=== PATIENT | male | born 1990 | race Caucasian/White ===

== ENCOUNTER 2016-08-08 01:09 | Emergency (ER) | payer OTHER ==
[2016-08-08 01:20] VITALS: BP 115/71; PULSE 108; TEMP 98.3; BMI 21.6
[2016-08-08] MEDS ORDERED: KETOROLAC TROMETHAMINE 60 MG/2 ML VIAL ONE (01:29)
[2016-08-08] MEDS ORDERED: KETOROLAC TROMETHAMINE 60 MG/2 ML VIAL IM ONE (01:29)
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
== END 2016-08-08 02:08 | disposition home or self-care (01) ==
LOC: FER 01:09
PROC: 3E0233Z Introduction of Anti-inflammatory into Muscle, Percutaneous Approach (ICD-10-PCS; principal; 2016-08-08)
DX: Y04.2XXA Assault by strike against or bumped into by another person, initial encounter (principal); Y93.89 Activity, other specified; Y92.9 Unspecified place or not applicable; F17.210 Nicotine dependence, cigarettes, uncomplicated
CPT/HCPCS: 71020-TC; 96372; 99281-25

== ENCOUNTER 2016-12-14 13:43 | Inpatient (IN) | payer OTHER ==
--- NOTE | 2016-12-14 18:26 | HP ---
Admission ROS S - HPI Allergies/Adverse Reactions: Allergies Allergy/AdvReac Type Severity Reaction Status Date / Time No Known Allergies Allergy Verified 08/08/16 01:11 - Ebola screening Have you been sick,other than usual withdrawal symptoms: No Patient History - Smoking Cessation Smoking history: Current every day smoker Have you smoked in the past 12 months: Yes Aproximately how many cigarettes per day: 6 Hx Chewing Tobacco Use: No Admission Physical Exam S - Vital Signs Vital Signs: Vital Signs - 24 hr 12/14/16 16:31 Temperature 97.4 F L Pulse Rate 62 Respiratory 20 Rate Blood Pressure 111/60 BHS Breath Alcohol Content Breath Alcohol Content: 0 Urine Drug Screen - Results Drug Screen Negative: No Urine Drug Screen Results: THC-Marijuana, PCP-Phencyclidine, BZO-Benzodiazepines , MTD-Methadone, TCA-Tricyclic Antidepress
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
[2016-12-14] MEDS ORDERED: MENTHOL/PHENOL 1 EACH UD MM PRN (20:26)
[2016-12-14] MEDS ORDERED: guaiFENesin/D-METHORPHAN HB 10 ML UNIT-DOSE CUPS PO PRN (20:26)
[2016-12-14] MEDS ORDERED: ACETAMINOPHEN 325 MG TABLET (FP) PO PRN (20:26)
[2016-12-14] MEDS ORDERED: IBUPROFEN 400 MG TABLET (FP) PO PRN (20:26)
[2016-12-14] MEDS ORDERED: MAG HYDROX/AL HYDROX/SIMETH 30 ML UNIT-DOSE CUP PO PRN (20:26)
[2016-12-14] MEDS ORDERED: P-EPHED 60MG/TRIPROLIDI 2.5MG TABLET PO PRN (20:26)
[2016-12-14] MEDS ORDERED: hydrOXYzine PAMOATE 50 MG CAPSULE (FP) PO PRN (20:26)
[2016-12-14] MEDS ORDERED: LOPERAMIDE HCL 2 MG CAPSULE PO PRN (20:26)
[2016-12-14] MEDS ORDERED: diphenhydrAMINE HCL 50 MG CAPSULE PO PRN (20:26)
[2016-12-14] MEDS ORDERED: MAGNESIUM CITRATE 300 ML BOTTLE PO PRN (20:26)
[2016-12-14] MEDS ORDERED: MAGNESIUM HYDROX 2400MG/30ML ORAL SUSPENSION 30 ML CUP PO PRN (20:26)
[2016-12-14] MEDS ORDERED: diazePAM 5 MG TABLET PO ONE (20:26)
[2016-12-14] MEDS: THIAMINE HCL 100 MG TABLET (FP) PO SCH (23:26)
[2016-12-14] MEDS: NICOTINE 21 MG/24 HOURS TOPICAL PATCH TD SCH (23:30)
[2016-12-14] MEDS: diazePAM 5 MG TABLET PO SCH (23:31)
[2016-12-15 01:25] LABS: URINE APPEARANCE SLCLOUDY; URINE BILIRUBIN NEGATIVE (NEGATIVE); URINE BLOOD NEGATIVE (NEGATIVE); URINE COLOR YELLOW; URINE GLUCOSE (UA) NEGATIVE (NEGATIVE); URINE KETONE NEGATIVE (NEGATIVE); URINE NITRITE NEGATIVE (NEGATIVE); URINE PROTEIN NEGATIVE (NEGATIVE)
[2016-12-15] MEDS: diazePAM 5 MG TABLET PO SCH ×3 (06:12→22:20)
[2016-12-15] MEDS ORDERED: METHADONE HCL 40 MG DISPERSABLE TABLET PO SCH (07:15)
[2016-12-15] MEDS ORDERED: METHADONE HCL 10 MG TABLET ONE (08:26)
[2016-12-15] MEDS ORDERED: METHADONE HCL 40 MG DISPERSABLE TABLET ONE (08:27)
[2016-12-15 08:49] LABS: URINE LEUK ESTERASE Negative (NEGATIVE)
[2016-12-15 10:20] LABS: MCH 30.3 pg (25.7-33.7); MCHC 33.4 g/dl (32.0-35.9); MEAN CELL VOLUME 90.8 fl (80-96); PLATELET COUNT 302 K/MM3 (134-434); RDW 13.2 % (11.9-15.9); WHITE BLOOD COUNT 7.7 K/mm3 (4.0-10.0)
[2016-12-15] MEDS: METHADONE 40 MG, METHADONE 10 MG PO SCH (10:34)
[2016-12-15] MEDS: PRENATAL VITAMINS W/ FOLIC ACID TABLET (FP) PO SCH (10:34)
[2016-12-15] MEDS: NICOTINE POLACRILEX 2 MG GUM BC PRN ×2 (10:35→19:15)
[2016-12-15] MEDS: NICOTINE 21 MG/24 HOURS TOPICAL PATCH TD SCH (10:35)
--- NOTE | 2016-12-15 10:45 | EKG ---
Test Reason : Blood Pressure : / mmHG Vent. Rate : 061 BPM Atrial Rate : 061 BPM P-R Int : 132 ms QRS Dur : 092 ms QT Int : 414 ms P-R-T Axes : 053 082 065 degrees QTc Int : 416 ms NORMAL SINUS RHYTHM WITH SINUS ARRHYTHMIA NORMAL ECG NO PREVIOUS ECGS AVAILABLE Confirmed by BLAKE PRECIADO, GIA ([id number]) on 12/15/2016 10:45:04 AM Referred By: Confirmed By:GIA LOZANO MD
[2016-12-15 11:02] LABS: ALBUMIN 3.9 g/dl (3.4-5.0); ALK PHOS 61 U/L (45-117); ANION GAP 10 (8-16); BILIRUBIN,TOTAL 0.8 mg/dL (0.2-1.0); CALCIUM 8.9 mg/dL (8.5-10.1); CO2 25 mmol/L (21-32); CREATININE 0.9 mg/dL (0.7-1.3); GLUCOSE,RANDOM 107 mg/dL (74-106); SGOT/AST 17 U/L (15-37); SGPT/ALT 29 U/L (12-78); TOT PROT 7.4 g/dl (6.4-8.2)
--- NOTE | 2016-12-15 11:04 | PN ---
[facility] CIWA - CIWA Score Nausea/Vomitin-No Nausea/No Vomiting Muscle Tremors: 2 Anxiety: 4-Mod. Anxious/Guarded Agitation: 3 Paroxysmal Sweats: 1-Minimal Palms Moist Orientation: 0-Oriented Tacttile Disturbances: 3-Moderate Itch/Numb/Burn Auditory Disturbances: 0-None Visual Disturbances: 0-None Headache: 0-None Present CIWA-Ar Total Score: 13 BHS Progress Note (SOAP) Subjective: ANXIETY,SWEATS,SLIGHT TREMORS,"JITTERY". Objective: 12/15/16 11:04 Vital Signs Temperature 97.3 F L 12/15/16 09:19 Pulse Rate 59 L 12/15/16 09:19 Respiratory Rate 16 12/15/16 09:19 Blood Pressure 105/57 12/15/16 09:19 O2 Sat by Pulse Oximetry (%) Laboratory Last Values WBC 7.7 K/mm3 (4.0-10.0) D 12/15/16 07:00 RBC 4.48 M/mm3 (4.00-5.60) 12/15/16 07:00 Hgb 13.6 GM/dL (11.7-16.9) 12/15/16 07:00 Hct 40.7 % (35.4-49) 12/15/16 07:00 MCV 90.8 fl (80-96) 12/15/16 07:00 MCH 30.3 pg (25.7-33.7) 12/15/16 07:00 MCHC 33.4 g/dl (32.0-35.9) 12/15/16 07:00 RDW 13.2 % (11.9-15.9) 12/15/16 07:00 Plt Count 302 K/MM3 (134-434) D 12/15/16 07:00 MPV 8.0 fl (7.5-11.1) 12/15/16 07:00 Sodium 138 mmol/L (136-145) 12/15/16 07:00 Potassium 4.1 mmol/L (3.5-5.1) 12/15/16 07:00 Chloride 103 mmol/L (98-107) 12/15/16 07:00 Carbon Dioxide 25 mmol/L (21-32) 12/15/16 07:00 Anion Gap 10 (8-16) 12/15/16 07:00 BUN 15 mg/dL (7-18) 12/15/16 07:00 Creatinine 0.9 mg/dL (0.7-1.3) 12/15/16 07:00 Creat Clearance w eGFR > 60 (>60) 12/15/16 07:00 Random Glucose 107 mg/dL (74-106) H 12/15/16 07:00 Calcium 8.9 mg/dL (8.5-10.1) 12/15/16 07:00 Total Bilirubin 0.8 mg/dL (0.2-1.0) D 12/15/16 07:00 AST 17 U/L (15-37) D 12/15/16 07:00 ALT 29 U/L (12-78) D 12/15/16 07:00 Alkaline Phosphatase 61 U/L (45-117) D 12/15/16 07:00 Total Protein 7.4 g/dl (6.4-8.2) 12/15/16 07:00 Albumin 3.9 g/dl (3.4-5.0) 12/15/16 07:00 Urine Color Yellow 12/14/16 22:45 Urine Appearance Slcloudy 12/14/16 22:45 Urine pH 6.0 (5.0-8.0) 12/14/16 22:45 Ur Specific [place] 1.025 (1.005-1.025) 12/14/16 22:45 Urine Protein Negative (NEGATIVE) 12/14/16 22:45 Urine Glucose (UA) Negative (NEGATIVE) 12/14/16 22:45 Urine Ketones Negative (NEGATIVE) 12/14/16 22:45 Urine Blood Negative (NEGATIVE) 12/14/16 22:45 Urine Nitrite Negative (NEGATIVE) 12/14/16 22:45 Urine Bilirubin Negative (NEGATIVE) 12/14/16 22:45 Urine Urobilinogen 2.0 mg/dL (0.2-1.0) 12/14/16 22:45 Ur Leukocyte Esterase Negative (NEGATIVE) 12/14/16 22:45 Assessment: 12/15/16 11:04 WITHDRAWAL SX Plan: CONTINUE DETOX
--- NOTE | 2016-12-15 11:17 | CONSULT ---
[facility] Psychiatric Consult - Data Date of interview: 12/15/16 Admission source: [facility] Identifying data: This is 26 years old male with no psychiatric hospitalization history intoxicated with: Cannabis, PCP, Opioids, Xanax and Nicotine Substance Abuse History: Urine Drug Screen Results: THC-Marijuana, PCP- Phencyclidine, BZO-Benzodiazepines, MTD-Methadone, TCA-Tricyclic Antidepress. - Smoking Cessation. Smoking history: Current every day smoker. Have you smoked in the past 12 months: Yes. Aproximately how many cigarettes per day: 13. Cigars Per Day: 0. Hx Chewing Tobacco Use: No. Initiated information on smoking cessation: Yes. 'Breaking Loose' booklet given: 12/14/16. - Substance & Tx. History. Hx Alcohol Use: No. Hx Substance Use: Yes. Substance Use Type : Opiates (MMTP), Tranquilizers. Hx Substance Use Treatment: Yes ([facility]) . - Substances Abused. XANAX. Route: Oral. Frequency: Daily. Amount used : 6MG. Age of first use: 17. Date of Last Use: 12/13/16 Medical History: Denies Psychiatric History: Reports history of depression, reports no medications taking prior to admission Physical/Sexual Abuse/Trauma History: Denies Additional Comment: Urine Drug Screen Results: THC-Marijuana, PCP-Phencyclidine , BZO-Benzodiazepines, MTD-Methadone, TCA-Tricyclic Antidepress. Observation. Detox Unit Care Protocol Mental Status Exam - Mental Status Exam Alert and Oriented to: Person Cognitive Function: Fair Patient Appearance: Unkempt Mood: Sad Affect: Flat Patient Behavior: Sedated Speech Pattern: Delayed Voice Loudness: Mildly Soft/Quiet Thought Process: Circumstantial Thought Disorder: Being Controlled Hallucinations: Denies Suicidal Ideation: Denies Homicidal Ideation: Denies Insight/Judgement: Fair Sleep: Difficulty falling asleep Appetite: Fair Muscle strength/Tone: Mild Hypotonicity Gait/Station: Shuffling Additional Comments: Observation. Detox Unit Care Protocol Psychiatric Findings - Problem List (Burns 1, 2,3) (1) Cannabis dependence, uncomplicated Current Visit: Yes Status: Acute (2) Nicotine dependence Current Visit: Yes Status: Acute Qualifiers: Nicotine product type: cigarettes Substance use status: in withdrawal Qualified Code(s): F17.213 - Nicotine dependence, cigarettes, with withdrawal; F17.213 - Nicotine dependence, cigarettes, with withdrawal (3) Sedative, hypnotic or anxiolytic dependence with withdrawal, uncomplicated Current Visit: Yes Status: Acute (4) Methadone maintenance therapy patient Current Visit: Yes Status: Chronic (5) Opioid dependence on agonist therapy Current Visit: Yes Status: Chronic (6) PCP dependence Current Visit: Yes Status: Chronic (7) Drug-induced mood disorder Current Visit: Yes Status: Suspected - Initial Treatment Plan Initial Treatment Plan: Observation. Detox Unit Care Protocol
[2016-12-15] MEDS: diazePAM 5 MG TABLET PO PRN (17:08)
[2016-12-15] MEDS: THIAMINE HCL 100 MG TABLET (FP) PO SCH (22:20)
[2016-12-16] MEDS ORDERED: METHADONE HCL 10 MG TABLET ONE (03:55)
[2016-12-16] MEDS ORDERED: METHADONE HCL 40 MG DISPERSABLE TABLET ONE (03:55)
[2016-12-16] MEDS: METHADONE 40 MG, METHADONE 10 MG PO SCH (05:45)
[2016-12-16] MEDS: diazePAM 5 MG TABLET PO PRN (05:46)
[2016-12-16] MEDS: diazePAM 5 MG TABLET PO SCH ×2 (10:36→22:10)
[2016-12-16] MEDS: NICOTINE 21 MG/24 HOURS TOPICAL PATCH TD SCH (10:36)
[2016-12-16] MEDS: PRENATAL VITAMINS W/ FOLIC ACID TABLET (FP) PO SCH (10:36)
--- NOTE | 2016-12-16 12:19 | PN ---
S CIWA - CIWA Score Nausea/Vomitin Muscle Tremors: 4-Moderate,w/Arms Extend Anxiety: 4-Mod. Anxious/Guarded Agitation: 4-Moderately Restless Paroxysmal Sweats: 1-Minimal Palms Moist Orientation: 0-Oriented Tacttile Disturbances: 1-Very Mild Itch/Numbness Auditory Disturbances: 0-None Visual Disturbances: 0-None Headache: 1-Very Mild CIWA-Ar Total Score: 18 BHS Progress Note (SOAP) Subjective: nausea, sweats, interrupted sleep, anxiety, tremors Objective: 12/17/16 07:59 Vital Signs 12/17/16 12/17/16 12/17/16 00:30 03:30 06:19 Temperature 96.6 F L Pulse Rate 60 Respiratory 18 18 16 Rate Blood Pressure 110/54 Laboratory Tests 12/14/16 12/14/16 12/15/16 07:00 22:45 07:00 WBC 7.7 D RBC 4.48 Hgb 13.6 Hct 40.7 MCV 90.8 MCH 30.3 MCHC 33.4 RDW 13.2 Plt Count 302 D MPV 8.0 Sodium Potassium Chloride Carbon Dioxide Anion Gap BUN Creatinine Creat Clearance w eGFR Random Glucose Calcium Total Bilirubin AST ALT Alkaline Phosphatase Total Protein Albumin Urine Color Yellow Urine Appearance Slcloudy Urine pH 6.0 Ur Specific [place] 1.025 Urine Protein Negative Urine Glucose (UA) Negative Urine Ketones Negative Urine Blood Negative Urine Nitrite Negative Urine Bilirubin Negative Urine Urobilinogen 2.0 Ur Leukocyte Esterase Negative RPR Titer Hepatitis C Antibody 0.1 12/15/16 12/15/16 07:00 07:00 WBC RBC Hgb Hct MCV MCH MCHC RDW Plt Count MPV Sodium 138 Potassium 4.1 Chloride 103 Carbon Dioxide 25 Anion Gap 10 BUN 15 Creatinine 0.9 Creat Clearance w eGFR > 60 Random Glucose 107 H Calcium 8.9 Total Bilirubin 0.8 D AST 17 D ALT 29 D Alkaline Phosphatase 61 D Total Protein 7.4 Albumin 3.9 Urine Color Urine Appearance Urine pH Ur Specific [place] Urine Protein Urine Glucose (UA) Urine Ketones Urine Blood Urine Nitrite Urine Bilirubin Urine Urobilinogen Ur Leukocyte Esterase RPR Titer Nonreactive Hepatitis C Antibody Assessment: 12/17/16 08:00 withdrawal sx Plan: cont detox, fluids, Mvi, encourage ambulation
[2016-12-16] MEDS: THIAMINE HCL 100 MG TABLET (FP) PO SCH (22:10)
[2016-12-17] MEDS ORDERED: METHADONE HCL 10 MG TABLET ONE (03:12)
[2016-12-17] MEDS ORDERED: METHADONE HCL 40 MG DISPERSABLE TABLET ONE (03:13)
[2016-12-17] MEDS: METHADONE 40 MG, METHADONE 10 MG PO SCH (05:50)
[2016-12-17] MEDS: diazePAM 5 MG TABLET PO PRN ×2 (05:50→19:39)
[2016-12-17] MEDS: PRENATAL VITAMINS W/ FOLIC ACID TABLET (FP) PO SCH (10:36)
[2016-12-17] MEDS: diazePAM 5 MG TABLET PO SCH ×2 (10:36→22:26)
[2016-12-17] MEDS: NICOTINE 21 MG/24 HOURS TOPICAL PATCH TD SCH (10:36)
--- NOTE | 2016-12-17 13:21 | PN ---
BHS Progress Note (SOAP) Subjective: Sweating. Objective: PT. A & O X 3, OBSERVED AMBULATING ON UNIT. NO ACUTE DISTRESS. 12/17/16 13:20 Vital Signs Temperature 97.2 F L 12/17/16 09:43 Pulse Rate 79 12/17/16 09:43 Respiratory Rate 18 12/17/16 09:43 Blood Pressure 114/58 12/17/16 09:43 O2 Sat by Pulse Oximetry (%) Laboratory Tests 12/14/16 12/14/16 12/15/16 07:00 22:45 07:00 WBC 7.7 D RBC 4.48 Hgb 13.6 Hct 40.7 MCV 90.8 MCH 30.3 MCHC 33.4 RDW 13.2 Plt Count 302 D MPV 8.0 Sodium Potassium Chloride Carbon Dioxide Anion Gap BUN Creatinine Creat Clearance w eGFR Random Glucose Calcium Total Bilirubin AST ALT Alkaline Phosphatase Total Protein Albumin Urine Color Yellow Urine Appearance Slcloudy Urine pH 6.0 Ur Specific [place] 1.025 Urine Protein Negative Urine Glucose (UA) Negative Urine Ketones Negative Urine Blood Negative Urine Nitrite Negative Urine Bilirubin Negative Urine Urobilinogen 2.0 Ur Leukocyte Esterase Negative RPR Titer Hepatitis C Antibody 0.1 12/15/16 12/15/16 07:00 07:00 WBC RBC Hgb Hct MCV MCH MCHC RDW Plt Count MPV Sodium 138 Potassium 4.1 Chloride 103 Carbon Dioxide 25 Anion Gap 10 BUN 15 Creatinine 0.9 Creat Clearance w eGFR > 60 Random Glucose 107 H Calcium 8.9 Total Bilirubin 0.8 D AST 17 D ALT 29 D Alkaline Phosphatase 61 D Total Protein 7.4 Albumin 3.9 Urine Color Urine Appearance Urine pH Ur Specific [place] Urine Protein Urine Glucose (UA) Urine Ketones Urine Blood Urine Nitrite Urine Bilirubin Urine Urobilinogen Ur Leukocyte Esterase RPR Titer Nonreactive Hepatitis C Antibody LABS NOTED. Assessment: 12/17/16 13:20 WITHDRAWAL SYMPTOMS. Plan: CONTINUE DETOX.
[2016-12-17] MEDS: THIAMINE HCL 100 MG TABLET (FP) PO SCH (22:26)
[2016-12-18] MEDS ORDERED: METHADONE HCL 40 MG DISPERSABLE TABLET ONE (03:32)
[2016-12-18] MEDS ORDERED: METHADONE HCL 10 MG TABLET ONE (03:32)
[2016-12-18] MEDS: METHADONE 40 MG, METHADONE 10 MG PO SCH (06:04)
[2016-12-18 06:48] VITALS: BP 104/60; PULSE 66; TEMP 96.2
[2016-12-18] MEDS ORDERED: diazePAM 5 MG TABLET PO SCH (10:00)
--- NOTE | 2016-12-18 13:11 | DS ---
[facility] Detox Discharge Summary Admission Date: 12/14/16 Discharge Date: 12/18/16 - History Present History: Sedative Dependence, MMTP Pertinent Past History: Denies - Physical Exam Results Vital Signs: Vital Signs Temperature 96.2 F L 12/18/16 06:44 Pulse Rate 66 12/18/16 06:44 Respiratory Rate 16 12/18/16 06:44 Blood Pressure 104/60 12/18/16 06:44 O2 Sat by Pulse Oximetry (%) Pertinent Admission Physical Exam Findings: Withdrawal symptoms Laboratory Tests 12/14/16 12/14/16 12/15/16 07:00 22:45 07:00 WBC 7.7 D RBC 4.48 Hgb 13.6 Hct 40.7 MCV 90.8 MCH 30.3 MCHC 33.4 RDW 13.2 Plt Count 302 D MPV 8.0 Sodium Potassium Chloride Carbon Dioxide Anion Gap BUN Creatinine Creat Clearance w eGFR Random Glucose Calcium Total Bilirubin AST ALT Alkaline Phosphatase Total Protein Albumin Urine Color Yellow Urine Appearance Slcloudy Urine pH 6.0 Ur Specific [place] 1.025 Urine Protein Negative Urine Glucose (UA) Negative Urine Ketones Negative Urine Blood Negative Urine Nitrite Negative Urine Bilirubin Negative Urine Urobilinogen 2.0 Ur Leukocyte Esterase Negative RPR Titer Hepatitis C Antibody 0.1 12/15/16 12/15/16 07:00 07:00 WBC RBC Hgb Hct MCV MCH MCHC RDW Plt Count MPV Sodium 138 Potassium 4.1 Chloride 103 Carbon Dioxide 25 Anion Gap 10 BUN 15 Creatinine 0.9 Creat Clearance w eGFR > 60 Random Glucose 107 H Calcium 8.9 Total Bilirubin 0.8 D AST 17 D ALT 29 D Alkaline Phosphatase 61 D Total Protein 7.4 Albumin 3.9 Urine Color Urine Appearance Urine pH Ur Specific [place] Urine Protein Urine Glucose (UA) Urine Ketones Urine Blood Urine Nitrite Urine Bilirubin Urine Urobilinogen Ur Leukocyte Esterase RPR Titer Nonreactive Hepatitis C Antibody Labs noted - Treatment Hospital Course: Detox Protocol Followed, Detoxed Safely, Responded well, Discharged Condition Good - Medication Discharge Medications: Ambulatory Orders NK [No Known Home Medication] 12/14/16 - Diagnosis (1) Nicotine dependence Status: Chronic Qualifiers: Nicotine product type: cigarettes Substance use status: in withdrawal Qualified Code(s): F17.213 - Nicotine dependence, cigarettes, with withdrawal; F17.213 - Nicotine dependence, cigarettes, with withdrawal (2) Sedative, hypnotic or anxiolytic dependence with withdrawal, uncomplicated Status: Acute (3) Methadone maintenance therapy patient Status: Chronic (4) Depression Status: Chronic (5) Anxiety Status: Chronic (6) Drug-induced mood disorder Status: Acute - AMA Did Patient Leave Against Medical Advice: No (F/U with your PCP in 1-2 weeks)
== END 2016-12-18 09:15 | disposition home or self-care (01) | DRG 773 ==
LOC: YASAS 13:43 → Y3N 22:35
PROVIDERS: ADMIT Internal Medicine; ATTEND Internal Medicine
PROC: HZ2ZZZZ Detoxification Services for Substance Abuse Treatment (ICD-10-PCS; principal; 2016-12-14)
DX: F13.230 Sedative, hypnotic or anxiolytic dependence with withdrawal, uncomplicated (principal); F11.20 Opioid dependence, uncomplicated; F16.20 Hallucinogen dependence, uncomplicated; F12.20 Cannabis dependence, uncomplicated; F17.213 Nicotine dependence, cigarettes, with withdrawal; F32.9 Major depressive disorder, single episode, unspecified; F41.9 Anxiety disorder, unspecified; F19.24 Other psychoactive substance dependence with psychoactive substance-induced mood disorder
CPT/HCPCS: 36415; 80053; 81003; 85027; 86593; 86803; 93005; 93010

== ENCOUNTER 2017-01-14 11:27 | Emergency (ER) | payer OTHER ==
[2017-01-14 11:37] VITALS: BP 118/72; PULSE 73; TEMP 97.8; BMI 20.3
--- NOTE | 2017-01-14 12:04 | PDOC ---
History of Present Illness - General Chief Complaint: Cold Symptoms Stated Complaint: CHEST PAIN Time Seen by Provider: 01/14/17 11:50 History Source: Patient Exam Limitations: No Limitations - History of Present Illness Initial Comments: 01/14/17 12:01 Agent came for evaluation of 2 weeks of progressive worsening of cough. States has used [id number] medications and old-fashioned remedies with minimal resolved and feels coughing is worsening. States has yellow, thick phlegm and is felt feverish on and off this past week. Smokes cigarettes but denies other drug use Timing/Duration: reports: changing over time, getting worse Severity: reports: mild, moderate Associated Symptoms: reports: chest pain/soreness, cough, nasal congestion, nasal drainage Past History - Travel Traveled outside of the country in the last 30 days: No Close contact w/someone who was outside of country & ill: No - Past Medical History Allergies/Adverse Reactions: Allergies Allergy/AdvReac Type Severity Reaction Status Date / Time No Known Allergies Allergy Verified 01/14/17 11:34 Home Medications: Ambulatory Orders Azithromycin [Zithromax -] 250 mg PO UTDICT #6 tab 01/14/17 Anemia: No Asthma: Yes Cancer: No Cardiac Disorders: No CVA: No COPD: No CHF: No Dementia: No Diabetes: No GI Disorders: No Disorders: No HTN: No Hypercholesterolemia: No Kidney Stones: No Liver Disease: No Seizures: No Thyroid Disease: No - Surgical History Abdominal Surgery: No Appendectomy: No Cardiac Surgery: No Cholecystectomy: No Lung Surgery: No Neurologic Surgery: No Orthopedic Surgery: Yes (BACK AND NECK SX W/ HARDWARE PLACEMENT) - Reproductive History Testicular Surgery: No - Immunization History Immunization Up to Date: Yes - Suicide/Smoking/Psychosocial Hx Smoking History: Current every day smoker Have you smoked in the past 12 months: Yes Number of Cigarettes Smoked Daily: 20 Cigars Per Day: 0 Information on smoking cessation initiated: No 'Breaking Loose' booklet given: 12/14/16 Hx Alcohol Use: No Drug/Substance Use Hx: No Substance Use Type: None Hx Substance Use Treatment: No Respiratory Specific PMHX - Complaint Specific PMHX TB (Tuberculosis): No Review of Systems - Review of Systems Able to Perform ROS?: Yes Is the patient limited Moroccan proficient: Yes Constitutional: Yes: Symptoms Reported, See HPI, Malaise HEENTM: Yes: Symptoms Reported, See HPI, Nose Congestion Respiratory: Yes: Symptoms reported, See HPI, Cough, Wheezing, Other (yellow phlegm) *Physical Exam - Vital Signs Last Vital Signs Temp Pulse Resp BP Pulse Ox 97.8 F 73 16 118/72 99 01/14/17 11:34 01/14/17 11:34 01/14/17 11:34 01/14/17 11:34 01/14/17 11:34 - Physical Exam General Appearance: Yes: Nourished, Appropriately Dressed, Apparent Distress HEENT: positive: MARY JO, Normal ENT Inspection, TMs Normal, Pharynx Normal Neck: positive: Supple. negative: Lymphadenopathy (R), Lymphadenopathy (L) Respiratory/Chest: positive: Normal Breath Sounds, Decreased Breath Sounds. 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, Fully Oriented, Alert, Normal Mood/ Affect, Normal Response, Motor Strength 5/5 *DC/Admit/Observation/Transfer Diagnosis at time of Disposition: Bronchitis - Discharge Dispostion Disposition: HOME Condition at time of disposition: Stable Admit: No - Prescriptions Prescriptions: Azithromycin [Zithromax -] 250 mg PO UTDICT #6 tab - Referrals - Patient Instructions Printed Discharge Instructions: DI for Acute Bronchitis Additional Instructions: Rest, drink lots of fluids: Teas, water, soups, Pedialyte Saltwater gargles Steamy showers/seem to face break up mucus Avoid contact with others until fevers and cough resolved Lots of handwashing and good hygiene Continue gdri-jmr-wzmxheo medications for symptomatic relief Tylenol or Motrin for fever and pain Zithromycin as directed Followup with private physician in one to 2 days as needed Return to emergency department for worsened symptoms, fevers, dehydration - Post Discharge Activity
--- NOTE | 2017-01-16 14:44 | EKG ---
Test Reason : Blood Pressure : / mmHG Vent. Rate : 062 BPM Atrial Rate : 062 BPM P-R Int : 134 ms QRS Dur : 094 ms QT Int : 404 ms P-R-T Axes : 046 076 063 degrees QTc Int : 410 ms NORMAL SINUS RHYTHM WITH SINUS ARRHYTHMIA POSSIBLE LEFT ATRIAL ENLARGEMENT BORDERLINE ECG WHEN COMPARED WITH ECG OF 14-DEC-2016 23:29, NO SIGNIFICANT CHANGE WAS FOUND Confirmed by CIRA KELLOGG MD ([id number]) on 01/16/2017 2:44:23 PM Referred By: Confirmed By:CIRA KELLOGG MD
== END 2017-01-14 12:23 | disposition home or self-care (01) ==
LOC: JERFT 11:27
DX: J40 Bronchitis, not specified as acute or chronic (principal); F17.210 Nicotine dependence, cigarettes, uncomplicated
CPT/HCPCS: 93005; 93010; 99281-25

== ENCOUNTER 2017-11-07 16:56 | Inpatient (IN) | payer OTHER ==
[2017-11-07 19:14] VITALS: BMI 20.7
--- NOTE | 2017-11-07 20:57 | HP ---
COWS - Scale Resting Pulse: 0= [place] 80 or Below Sweatin= Chills/Flushing Restless Observation: 1= Difficult to Sit Still Pupil Size: 1= Pupils >than Normal Bone or Joint Aches: 1= Mild Discomfort Runny Nose/ Eye Tearin= Runny Nose/Eyes GI Upset > 30mins: 1= Stomach Cramp Tremor Observation: 1= Tremor [place], Not Seen Yawning Observation: 2= >3x During Session Anxiety or Irritability: 2=Irritable/Anxious Goose Flesh Skin: 0=Smooth Skin COWS Score: 12 CIWA Score - CIWA Score Nausea/Vomitin-Mild Nausea/No Vomiting Muscle Tremors: 2 Anxiety: 3 Agitation: 3 Paroxysmal Sweats: 2 Orientation: 0-Oriented Tacttile Disturbances: 1-Very Mild Itch/Numbness Auditory Disturbances: 0-None Visual Disturbances: 0-None Headache: 0-None Present CIWA-Ar Total Score: 12 Admission ROS S - HPI Chief Complaint: alcohol and opioid withdrawal symptoms Allergies/Adverse Reactions: Allergies Allergy/AdvReac Type Severity Reaction Status Date / Time No Known Allergies Allergy Verified 01/14/17 11:34 History of Present Illness: 27 yo male with hx of nicotine, alcohol, heroin (IV), xanax dependence is here seeking detox. Last detox one year ago at [facility] Nov 2016. Reports hx of broken neck with fusion sx in 2007 was on pain management and stopped attending three months ago d/t to the cost of his medications. Reports stopped attending [facility] two months ago d/t lack of insurance. Reports uses occasional street methadone to prevent getting sick from lack of heroin use. Denies hx of seizures, blackouts or overdose. Reports one week ago was in nursing home for a week. Longest period of one year. Reference #: [id number] Others' Prescriptions Patient Name: Andrea Monique Date: 1990 Address: [address] [place] [id number] Sex: Male Rx Written Rx Dispensed Drug Quantity Days Supply Prescriber Name 10/08/2017 10/08/2017 chlordiazepoxide 25 mg capsule 26 5 Sunny Craven Patient Name: Rangel Monique Date: 1990 Address: [address] [place] [id number] Sex: Male Rx Written Rx Dispensed Drug Quantity Days Supply Prescriber Name 08/28/2017 09/01/2017 methadone hcl 10 mg tablet 60 30 Ventrudo, Dmitriy Baker 07/31/2017 07/31/2017 oxycodone hcl 30 mg tablet 90 30 ValadezSubha Anne PA 06/29/2017 06/29/2017 oxycodone hcl 30 mg tablet 90 30 Valadez, Subha A PA 06/29/2017 06/29/2017 morphine sulf er 15 mg tablet 60 30 Valadez, Subha A PA 06/01/2017 06/01/2017 oxycodone hcl 30 mg tablet 90 30 Valadez, Subha A PA 04/27/2017 05/02/2017 oxycodone hcl 30 mg tablet 90 30 Ventrudo, Dmitriy Baker 04/03/2017 04/03/2017 oxycodone hcl 30 mg tablet 90 30 Valadez, Subha A PA 02/27/2017 03/01/2017 oxycodone hcl 30 mg tablet 90 30 Ventrudo, Dmitriy Baker 01/23/2017 01/27/2017 oxycodone hcl 30 mg tablet 90 30 Valadez, Subha A PA 12/29/2016 12/29/2016 oxycodone hcl 30 mg tablet 90 30 Valadez, Subha A PA 11/28/2016 11/30/2016 oxycodone hcl 30 mg tablet 90 30 Ventrudo, Dmitriy Baker 11/28/2016 11/30/2016 morphine sulf er 15 mg tablet 60 30 Ventrudo, Dmitriy Baker Exam Limitations: No Limitations - Ebola screening Have you traveled outside of the country in the last 21 days: No Have you had contact with anyone from an Ebola affected area: No Have you been sick,other than usual withdrawal symptoms: No Do you have a fever: No - Review of Systems Constitutional: Loss of Appetite, Changes in sleep EENT: reports: No Symptoms Reported Respiratory: reports: No Symptoms reported Cardiac: reports: No Symptoms Reported GI: reports: Poor Appetite, Poor Fluid Intake, Abdominal cramping : reports: No Symptoms Reported Musculoskeletal: reports: Back Pain, Joint Pain Integumentary: reports: Sweating Neuro: reports: No Symptoms reported Endocrine: reports: Increased Thirst Hematology: reports: No Symptoms Reported Psychiatric: reports: Orientated x3, Anxious Other Systems: Reviewed and Negative Patient History - Patient Medical History Hx Anemia: No Hx Asthma: No Hx Chronic Obstructive Pulmonary Disease (COPD): No Hx Cancer: No Hx Cardiac Disorders: No Hx Congestive Heart Failure: No Hx Hypertension: No Hx Hypercholesterolemia: No Hx Pacemaker: No HX Cerebrovascular Accident: No Hx Seizures: No Hx Dementia: No Hx Diabetes: No Hx Gastrointestinal Disorders: No Hx Liver Disease: No Hx Genitourinary Disorders: No Hx Sexually Transmitted Disorders: No Hx Renal Disease (ESRD): No Hx Thyroid Disease: No Hx Human Immunodeficiency Virus (HIV): No Hx Hepatitis C: No Hx Depression: No Hx Suicide Attempt: No Hx Bipolar Disorder: No Hx Schizophrenia: No - Patient Surgical History Past Surgical History: Yes Hx Neurologic Surgery: No Hx Cataract Extraction: No Hx Cardiac Surgery: No Hx Lung Surgery: No Hx Breast Surgery: No Hx Breast Biopsy: No Hx Abdominal Surgery: No Hx Appendectomy: No Hx Cholecystectomy: No Hx Genitourinary Surgery: No Hx Section: No Hx Orthopedic Surgery: Yes (BACK AND NECK SX W/ HARDWARE PLACEMENT) Anesthesia Reaction: No - PPD History Previous Implant?: No Documented Results: Negative w/proof Date: 12/16/16 PPD to be Administered?: Yes - Smoking Cessation Smoking history: Current every day smoker Have you smoked in the past 12 months: Yes Aproximately how many cigarettes per day: 20 Cigars Per Day: 0 Hx Chewing Tobacco Use: No Initiated information on smoking cessation: Yes 'Breaking Loose' booklet given: 11/07/17 - Substance & Tx. History Hx Alcohol Use: Yes Hx Substance Use: Yes Substance Use Type: Alcohol, Heroin, Tranquilizers Hx Substance Use Treatment: Yes ([facility] Nov 2016) - Substances Abused Heroin Route: Injection Frequency: Daily Amount used: 2 bundles Age of first use: 19 Date of Last Use: 11/07/17 Alcohol Route: Oral Frequency: 1-2 times per week Amount used: 4 -5 beers x 12 oz Age of first use: 14 Date of Last Use: 11/07/17 Alprazolam (Xanax) Route: Oral Frequency: Daily Amount used: 4 mg Age of first use: 26 Date of Last Use: 11/03/17 Family Disease History - Family Disease History Family Disease History: Other: Father (SUBSTANCE ABUSE), Mother (ALCOHOLISM) Admission Physical Exam BHS - Vital Signs Vital Signs: Vital Signs - 24 hr 11/07/17 19:11 Temperature 98.3 F Pulse Rate 75 Respiratory 18 Rate Blood Pressure 120/69 - Physical General Appearance: Yes: Appropriately Dressed, Mild Distress, Thin, Sweating, Anxious HEENTM: Yes: EOMI, Hearing grossly Normal, Normal ENT Inspection, Normocephalic , Normal Voice, MARY JO, Pharynx Normal, Tm's normal Respiratory: Yes: Within Normal Limits Neck: Yes: Within Normal Limits Breast: Yes: Breast Exam Deferred Cardiology: Yes: Regular Rhythm, Regular Rate Abdominal: Yes: Normal Bowel Sounds, Non Tender, Flat, Soft Genitourinary: Yes: Within Normal Limits Back: Yes: Normal Inspection Musculoskeletal: Yes: full range of Motion, Gait Steady, Pelvis Stable Extremities: Yes: Normal Capillary Refill, Normal Inspection, Normal Range of Motion, Non-Tender 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, Fully Oriented, Alert, Motor Strength 5/5, Depressed Affect Integumentary: Yes: Normal Color, Warm, Diaphoresis Lymphatic: Yes: Within Normal Limits - Diagnostic (1) Opioid dependence with withdrawal Current Visit: Yes Status: Acute (2) Alcohol dependence with withdrawal Current Visit: Yes Status: Acute Qualifiers: Complication of substance-induced condition: uncomplicated Qualified Code(s ): F10.230 - Alcohol dependence with withdrawal, uncomplicated (3) Sedative hypnotic or anxiolytic dependence Current Visit: Yes Status: Acute (4) Chronic neck pain Current Visit: Yes Status: Acute Cleared for Admission [facility] - Detox or Rehab [facility] Level of Care: Medically Managed Detox Regimen/Protocol: Methadone/Valium [facility] Breath Alcohol Content Breath Alcohol Content: 0.016 Urine Drug Screen - Results Drug Screen Negative: No Urine Drug Screen Results: OPI-Opiates, MTD-Methadone, OXY-Oxycodone
[2017-11-07] MEDS ORDERED: diazePAM 5 MG TABLET PO PRN (21:08)
[2017-11-07] MEDS ORDERED: MAGNESIUM CITRATE 300 ML BOTTLE PO PRN (21:08)
[2017-11-07] MEDS ORDERED: IBUPROFEN 400 MG TABLET (FP) PO PRN (21:08)
[2017-11-07] MEDS ORDERED: diazePAM 5 MG TABLET PO ONE (21:08)
[2017-11-07] MEDS ORDERED: METHADONE HCL 10 MG TABLET (FOR DETOX USE ONLY) PO ONE ×2 (21:08→23:00)
[2017-11-07] MEDS ORDERED: guaiFENesin/D-METHORPHAN HB 10 ML UNIT-DOSE CUPS PO PRN (21:08)
[2017-11-07] MEDS ORDERED: LOPERAMIDE HCL 2 MG CAPSULE PO PRN (21:08)
[2017-11-07] MEDS ORDERED: NICOTINE POLACRILEX 2 MG GUM BUC PRN (21:08)
[2017-11-07] MEDS ORDERED: P-EPHED 60MG/TRIPROLIDI 2.5MG TABLET PO PRN (21:08)
[2017-11-07] MEDS ORDERED: MAGNESIUM HYDROX 2400MG/30ML ORAL SUSPENSION 30 ML CUP PO PRN (21:08)
[2017-11-07] MEDS ORDERED: MAG HYDROX/AL HYDROX/SIMETH 30 ML UNIT-DOSE CUP PO PRN (21:08)
[2017-11-07] MEDS ORDERED: ACETAMINOPHEN 325 MG TABLET (FP) PO PRN (21:08)
[2017-11-07] MEDS ORDERED: MENTHOL/PHENOL 1 EACH UD MM PRN (21:08)
[2017-11-07] MEDS ORDERED: THIAMINE HCL 100 MG TABLET (FP) PO SCH (22:00)
[2017-11-07] MEDS ORDERED: MELATONIN 5 MG TABLETS PO PRN (22:00)
[2017-11-07] MEDS: diazePAM 5 MG TABLET PO SCH (23:40)
[2017-11-08 02:57] LABS: URINE APPEARANCE CLEAR; URINE BILIRUBIN NEGATIVE (<2.0 mg/dL); URINE COLOR YELLOW; URINE GLUCOSE (UA) NEGATIVE (NEGATIVE); URINE KETONE NEGATIVE (NEGATIVE); URINE LEUK ESTERASE NEGATIVE (NEGATIVE); URINE NITRITE NEGATIVE (NEGATIVE); URINE PROTEIN NEGATIVE (NEGATIVE)
[2017-11-08] MEDS: diazePAM 5 MG TABLET PO SCH ×2 (05:44→13:55)
[2017-11-08] MEDS ORDERED: PRENATAL VITAMINS W/ FOLIC ACID TABLET (FP) PO SCH (10:00)
[2017-11-08] MEDS ORDERED: METHADONE HCL 10 MG TABLET (FOR DETOX USE ONLY) PO SCH (10:00)
[2017-11-08] MEDS ORDERED: NICOTINE 21 MG/24 HOURS TOPICAL PATCH TD SCH (10:00)
[2017-11-08 10:18] LABS: HEMATOCRIT 36.2 % (35.4-49); MCH 29.2 pg (25.7-33.7); MCHC 33.1 g/dl (32.0-35.9); MEAN CELL VOLUME 88.4 fl (80-96); MEAN PLT VOLUME 7.5 fl (7.5-11.1); PLATELET COUNT 183 K/MM3 (134-434); RBC 4.09 M/mm3 (4.00-5.60); RDW 13.3 % (11.9-15.9); WHITE BLOOD COUNT 4.8 K/mm3 (4.0-10.0)
--- NOTE | 2017-11-08 10:24 | PN ---
S CIWA - CIWA Score Nausea/Vomitin-No Nausea/No Vomiting Muscle Tremors: 4-Moderate,w/Arms Extend Anxiety: 4-Mod. Anxious/Guarded Agitation: 4-Moderately Restless Paroxysmal Sweats: 1-Minimal Palms Moist Orientation: 0-Oriented Tacttile Disturbances: 0-None Auditory Disturbances: 0-None Visual Disturbances: 0-None Headache: 0-None Present CIWA-Ar Total Score: 13 BHS COWS - Scale Resting Pulse: 1= [place] 81-100 Sweatin=Flushed/Facial Moisture Restless Observation: 3= Extraneous Movement Pupil Size: 0= Normal to Room Light Bone or Joint Aches: 1= Mild Discomfort Runny Nose/ Eye Tearin= None GI Upset > 30mins: 0= None Tremor Observation of Outstretched Hands: 1= Tremor [place], Not Seen Yawning Observation: 4= Several Times/Minute Anxiety or Irritability: 2=Irritable/Anxious Goose Flesh Skin: 0=Smooth Skin COWS Score: 14 S Progress Note (SOAP) Subjective: ANXIETY,RESTLESSNESS,IRRITABILITY,CHILLS,YAWNING,FATIGUE. Objective: 11/08/17 10:22 Vital Signs 11/08/17 11/08/17 11/08/17 03:30 06:53 09:19 Temperature 96.9 F L 96.2 F L Pulse Rate 50 L 82 Respiratory 18 18 18 Rate Blood Pressure 97/61 102/64 Laboratory Tests 11/07/17 11/08/17 22:57 07:00 WBC 4.8 RBC 4.09 Hgb 12.0 Hct 36.2 MCV 88.4 MCH 29.2 MCHC 33.1 RDW 13.3 Plt Count 183 D MPV 7.5 Urine Color Yellow Urine Appearance Clear Urine pH 6.0 Ur Specific [place] 1.025 Urine Protein Negative Urine Glucose (UA) Negative Urine Ketones Negative Urine Blood Negative Urine Nitrite Negative Urine Bilirubin Negative Urine Urobilinogen 2.0 Ur Leukocyte Esterase Negative Assessment: 11/08/17 10:23 WITHDRAWAL SX Plan: CONTINUE DETOX
[2017-11-08 10:36] LABS: CHLORIDE 105 mmol/L (98-107); POTASSIUM 3.8 mmol/L (3.5-5.1); SODIUM 140 mmol/L (136-145)
[2017-11-08 11:04] LABS: ALBUMIN 3.6 g/dl (3.4-5.0); ALK PHOS 52 U/L (45-117); ANION GAP 7 MMOL/L (8-16); BILIRUBIN,TOTAL 0.3 mg/dL (0.2-1); BLOOD UREA NITROGEN 12 mg/dL (7-18); CALCIUM 8.6 mg/dL (8.5-10.1); CO2 28 mmol/L (21-32); CREATININE 0.8 mg/dL (0.55-1.3); GLUCOSE,RANDOM 109 mg/dL (74-106); SGOT/AST 19 U/L (15-37); SGPT/ALT 17 U/L (13-61); TOT PROT 6.9 g/dl (6.4-8.2)
--- NOTE | 2017-11-08 12:59 | EKG ---
Test Reason : Blood Pressure : / mmHG Vent. Rate : 059 BPM Atrial Rate : 059 BPM P-R Int : 140 ms QRS Dur : 096 ms QT Int : 408 ms P-R-T Axes : 053 075 068 degrees QTc Int : 403 ms SINUS BRADYCARDIA WITH SINUS ARRHYTHMIA OTHERWISE NORMAL ECG WHEN COMPARED WITH ECG OF 14-JAN-2017 11:44, NO SIGNIFICANT CHANGE WAS FOUND Confirmed by CHATA PRECIADO, NISHA ([id number]) on 11/08/2017 12:58:57 PM Referred By: Confirmed By:NISHA BRIZUELA MD
[2017-11-08 14:12] VITALS: BP 103/68; PULSE 83; TEMP 98
--- NOTE | 2017-11-08 15:27 | PN ---
S Progress Note Note: PT DECLINED TO CONTINUE WITH DETOX STATING HE IS GOING BACK TO HIS PROGRAM AT POSITIVE DIRECTION ON [facility]. PT REPORTS HE HAS A PMD BUT DOES NOT REMEMBER HER NAME.
--- NOTE | 2017-11-08 15:29 | DS ---
[facility] Detox Discharge Summary Admission Date: 11/07/17 Discharge Date: 11/08/17 - History Present History: Alcohol Dependence, Opioid Dependence, Sedative Dependence Additional Comments: PT DECLINED TO CONTINUE WITH DETOX FOR PERSONAL REASONS. Pertinent Past History: PLEASE SEE DX BELOW - Physical Exam Results Vital Signs: Vital Signs Temperature 98 F 11/08/17 14:11 Pulse Rate 83 11/08/17 14:11 Respiratory Rate 20 11/08/17 14:11 Blood Pressure 103/68 11/08/17 14:11 O2 Sat by Pulse Oximetry (%) Pertinent Admission Physical Exam Findings: WITHDRAWAL SX Laboratory Tests 11/07/17 11/08/17 11/08/17 22:57 07:00 07:00 WBC 4.8 RBC 4.09 Hgb 12.0 Hct 36.2 MCV 88.4 MCH 29.2 MCHC 33.1 RDW 13.3 Plt Count 183 D MPV 7.5 Sodium 140 Potassium 3.8 Chloride 105 Carbon Dioxide 28 Anion Gap 7 L BUN 12 Creatinine 0.8 Creat Clearance w eGFR > 60 Random Glucose 109 H Calcium 8.6 Total Bilirubin 0.3 AST 19 ALT 17 Alkaline Phosphatase 52 Total Protein 6.9 Albumin 3.6 Urine Color Yellow Urine Appearance Clear Urine pH 6.0 Ur Specific [place] 1.025 Urine Protein Negative Urine Glucose (UA) Negative Urine Ketones Negative Urine Blood Negative Urine Nitrite Negative Urine Bilirubin Negative Urine Urobilinogen 2.0 Ur Leukocyte Esterase Negative - Treatment Hospital Course: Discharged Condition Good - Medication Discharge Medications: Ambulatory Orders NK [No Known Home Medication] 11/07/17 - Diagnosis (1) Alcohol dependence with withdrawal Current Visit: Yes Status: Acute Qualifiers: Complication of substance-induced condition: uncomplicated Qualified Code(s ): F10.230 - Alcohol dependence with withdrawal, uncomplicated (2) Opioid dependence with withdrawal Current Visit: Yes Status: Acute (3) Sedative hypnotic or anxiolytic dependence Current Visit: Yes Status: Acute (4) Nicotine dependence Current Visit: Yes Status: Acute Qualifiers: Nicotine product type: cigarettes Substance use status: in withdrawal Qualified Code(s): F17.213 - Nicotine dependence, cigarettes, with withdrawal - AMA Did Patient Leave Against Medical Advice: Yes (AMA)
[2017-11-09] MEDS ORDERED: diazePAM 5 MG TABLET PO SCH (10:00)
[2017-11-09] MEDS ORDERED: METHADONE HCL 5 MG TABLET (FOR DETOX USE ONLY) PO SCH (10:00)
[2017-11-11] MEDS ORDERED: diazePAM 5 MG TABLET PO SCH (10:00)
[2017-11-11] MEDS ORDERED: METHADONE HCL 10 MG TABLET (FOR DETOX USE ONLY) PO SCH (10:00)
[2017-11-12] MEDS ORDERED: METHADONE HCL 5 MG TABLET (FOR DETOX USE ONLY) PO SCH (06:00)
== END 2017-11-08 15:44 | disposition left against medical advice (07) | DRG 770 ==
LOC: YASAS 16:56 → Y3N 20:45
PROC: HZ2ZZZZ Detoxification Services for Substance Abuse Treatment (ICD-10-PCS; principal; 2017-11-07)
DX: F11.23 Opioid dependence with withdrawal (principal); F10.230 Alcohol dependence with withdrawal, uncomplicated; F13.20 Sedative, hypnotic or anxiolytic dependence, uncomplicated; F17.213 Nicotine dependence, cigarettes, with withdrawal; M54.2 Cervicalgia; G89.29 Other chronic pain
CPT/HCPCS: 36415; 80053; 81003; 85027; 86593; 93005; 93010